=== PATIENT | female | born 1965 | race Caucasian/White ===

== ENCOUNTER 2022-07-12 16:09 | Emergency (ER) | payer MEDICAID ==
[~2022-07-12] VITALS: Ht 165.1 cm; Wt 83.0 kg
[2022-07-12 16:18] VITALS: BP 143/96
[2022-07-12] MEDS ORDERED: AMLO10TA28 PO ×3 (18:25→20:18)
== END 2022-07-12 18:34 | disposition home or self-care (01) ==
LOC: ER 16:10
DX: I10 Essential (primary) hypertension (principal); Z59.00 Homelessness unspecified
CPT/HCPCS: 99281